=== PATIENT | male | born 1990 | race African-American/Black ===

== ENCOUNTER 2017-01-04 08:33 | Emergency (ER) | payer OTHER ==
[~2017-01-04] VITALS: Ht 185.4 cm; Wt 95.5 kg
[2017-01-04] MEDS ORDERED: ALBU8.5H8 IH (08:46)
[2017-01-04 09:16] VITALS: BP 148/98
[2017-01-04] MEDS ORDERED: SODIUM CHLORIDE 0.9% 1,000 ML IV ONE (10:15)
[2017-01-04] MEDS ORDERED: ONDANSETRON HCL 4 MG/2 ML VIAL IVP ONE (10:15)
[2017-01-04 10:38] LABS: ADD UA MICROSCOPIC NO; APPEARANCE,URINE CLEAR (CLEAR); GLUCOSE, URINE (UA) NEGATIVE (NEGATIVE); KETONES,URINE NEGATIVE (NEGATIVE); LEUKOCYTE ESTERASE ,URINE NEGATIVE (NEGATIVE); OCCULT BLOOD,URINE NEGATIVE (NEGATIVE); PROTEIN,URINE NEGATIVE (NEGATIVE)
[2017-01-04] MEDS ORDERED: ACETAMINOPHEN 500 MG TABLET PO ONE (10:45)
== END 2017-01-04 11:05 | disposition home or self-care (01) ==
LOC: EMS 08:36
DX: R10.9 Unspecified abdominal pain (principal); R11.0 Nausea; F10.10 Alcohol abuse, uncomplicated; J45.909 Unspecified asthma, uncomplicated; F17.290 Nicotine dependence, other tobacco product, uncomplicated; Y90.9 Presence of alcohol in blood, level not specified
CPT/HCPCS: 80307; 81003; 99284; J2405; J7030